=== PATIENT | male | born 1960 | race Caucasian/White ===

== ENCOUNTER → 2016-11-04 | Outpatient (CLI) | payer OTHER, BC ==
[~2016-11-04] MED LIST: AMLO-110 PO; CYAN500T13 PO; DIAZ-165 PO; DRGTP75 TD; ESCI1TAB10 PO; FLUT0.15 NAE; HYDR-3983 PO; HYDR50TA3 PO; MOME220A INH; NXM/40 PO; SIMV10TA2 PO; VTMD PO; ZTA10 PO
[2016-11-04 13:29] LABS: HEMATOCRIT 40.3 % (42-52); MEAN CELL VOLUME 90.6 fL (80-100); MEAN CORPUSCULAR HEMOGLOBIN 30.3 pg (25-34); MEAN CORPUSCULAR HGB CONC 33.5 g/dl (32-36); MEAN PLATELET VOLUME 10.6 fL (7.4-10.4); PLATELET COUNT 281 K/uL (130-400); RED BLOOD COUNT 4.45 M/uL (4.7-6.1); WHITE BLOOD COUNT 6.32 K/uL (4.8-10.8)
[2016-11-04 13:55] LABS: ALT/SGPT 20 U/L (12-78); BLOOD UREA NITROGEN 7 mg/dl (7-18); BUN/CREATININE RATIO 7.1 (10-20); CARBON DIOXIDE 27 mmol/L (21-32); CHLORIDE 107 mmol/L (98-107); CHOLESTEROL 224 mg/dl (0-200); GLUCOSE 91 mg/dl (70-99); POTASSIUM 3.9 mmol/L (3.5-5.1); SODIUM 144 mmol/L (136-145); URIC ACID 6.5 mg/dl (2.6-7.2)
[2016-11-04 13:59] LABS: ALB/GLOB RATIO 0.9 (0.9-2); ALKALINE PHOSPHATASE 122 U/L (45-117); AST/SGOT 15 U/L (15-37); CHOLESTEROL/HDL RATIO 5.1; HDL CHOLESTEROL 44 mg/dl; LDL CHOLESTEROL CALCULATED 149 mg/dl; TRIGLYCERIDES 153 mg/dl (0-150); VERY LOW DENSITY LIPOPROT CALC 31 mg/dl
[2016-11-04 14:33] LABS: ESTIMATED AVERAGE GLUCOSE 117 mg/dl; HA1C FLAG Normal (Normal)
== END ==
LOC: C.LAB 11:51
PROVIDERS: ATTEND General Practice
DX: E55.9 Vitamin D deficiency, unspecified (principal); E78.5 Hyperlipidemia, unspecified; I10 Essential (primary) hypertension; Z13.9 Encounter for screening, unspecified; G62.9 Polyneuropathy, unspecified; E79.0 Hyperuricemia without signs of inflammatory arthritis and tophaceous disease

== ENCOUNTER → 2016-12-10 | Outpatient (CLI) | payer OTHER, BC ==
[~2016-12-10] MED LIST changes: +OPTIRAY 320 IV PRN
--- NOTE | 2016-12-10 13:39 | DIAGNOSTIC IMAGING REPORT ---
SOFT TISSUE NECK WITH CLINICAL HISTORY: 55 years-old Male presenting with ENLARGED LYMPH NODE. TECHNIQUE: Multidetector CT of the neck was performed after the administration of intravenous contrast. A dose lowering technique was used consistent with the principles of ALARA (as low as reasonably achievable). COMPARISON: 08/07/2015. CT DOSE: The estimated cumulative dose is 535.14 mGy.cm. FINDINGS: Theatrical Variety Agent topogram: Cervical hardware noted. Subjacent to the marker along the left cervical region, enlarged lymph node measuring 12 x 10 mm and an adjacent smaller 8 x 6 mm lymph node. These are in part anterior to the posterior border of the left sternocleidomastoid, lateral to the carotid, and below the level of the cricoid (level 4). A few additional mildly prominent level 5B lymph nodes. Similar subcentimeter prominent posterior cervical triangle lymph nodes also noted on the lateral right. No suspicious enhancing nodularity in the nasopharynx, oropharynx, or hypopharynx. Amalgam obscures evaluation of the oral cavity. Larynx normal. No displacement of the parapharyngeal fat. Normal thyroid. Vessels patent. Limited intracranial evaluation within normal limits. Paranasal sinuses and mastoid air cells clear. Anterior cervical discectomy and fusion from C5 to C7 with interbody spacers. Lung apices clear. IMPRESSION: Prominent left cervical lymph nodes at the site of clinical concern. Additional prominent right cervical lymph nodes. These are not pathologically enlarged by CT criteria. These may be reactive. No suspicious enhancing mass to suggest neoplasm. Electronically signed by: Manfred Castillo M.D. 12/10/2016 1:38 PM Dictated Date/Time: 12/10/2016 1:26 PM
== END | disposition home or self-care (01) ==
LOC: C.CTS 12:49
PROVIDERS: ATTEND Physician Assistant
DX: R59.0 Localized enlarged lymph nodes (principal)